=== PATIENT | male | born 1935 | race Caucasian/White ===

== ENCOUNTER 2017-06-04 16:57 | Emergency (ER) | payer MEDICARE, OTHER ==
[2017-06-04] MEDS ORDERED: LIDOCAINE 1% 2 ML VIAL ONE (17:55)
[2017-06-04] MEDS ORDERED: TETANUS/DIPHTHERIA/PERTUSSIS 0.5 ML SYRINGE IM ONE ×2 (18:40→18:56)
--- NOTE | 2017-06-04 18:41 | ED Physician Documentation ---
PD HPI HEAD INJURY - Stated complaint Stated Complaint: FALL HEAD LAC - Chief complaint Chief Complaint: Neuro - History obtained from History obtained from: Patient - History of Present Illness Mechanism of head injury: Fell Where head injury occurred: Home Timing - onset: Today Location of injury: Right Quality of pain: Pain Associated symptoms: No: LOC, AMS, Amnesia, Nausea / vomiting, Neck pain, Paresthesias, Seizures, Ear drainage, Nasal drainage Symptoms improve with: Rest, Ice Symptoms worsen with: Palpation, Movement Contributing factors: No: Anticoagulated Similar symptoms before: Diagnosis (laceration) Recently seen: Not recently seen - Additional information Additional information: 82-year-old male was working on a stairway and there was a board that was not in place and he slipped off to the side landing on his right side. He fell about 4 feet. He hit his head he did not get knocked out he denies any pain in his neck he denies any numbness or tingling denies any nausea or vomiting. Review of Systems Constitutional: denies: Fever, Chills, Myalgias Eyes: denies: Decreased vision Ears: denies: Ear pain Nose: denies: Congestion Throat: denies: Sore throat Cardiac: denies: Chest pain / pressure Respiratory: denies: Dyspnea, Cough GI: denies: Abdominal Pain, Nausea, Vomiting : denies: Dysuria Skin: denies: Rash Musculoskeletal: denies: Neck pain, Back pain, Extremity pain Neurologic: denies: Generalized weakness, Focal weakness, Numbness PD PAST MEDICAL HISTORY - Past Medical History Past Medical History: Yes Cardiovascular: Hypertension Neuro: TIA - Past Surgical History Past Surgical History: Yes - Allergies Allergies/Adverse Reactions: Allergies Allergy/AdvReac Type Severity Reaction Status Date / Time Penicillins Allergy Rash Verified 06/04/17 17:08 Sulfa (Sulfonamide Allergy Unknown Verified 06/04/17 17:08 Antibiotics) - Social History Does the pt smoke?: No Smoking Status: Never smoker Does the pt drink ETOH?: Yes ETOH Use: Wine Does the pt have substance abuse?: No - Immunizations Immunizations are current?: No Immunizations: TDAP >10years/unknown - POLST Patient has POLST: No PD ED PE NORMAL - Vitals Vital signs reviewed: Yes (Normal) - General General: Alert and oriented X 3, No acute distress, Well developed/nourished - HEENT HEENT: PERRL, EOMI, Ears normal, Moist mucous membranes, Pharynx benign, Other ( There is a 5 cm laceration to the right scalp over the parietal frontal area.) - Neck Neck: Supple, no meningeal sign, No bony TTP - Respiratory Respiratory: No respiratory distress - Derm Derm: Normal color, Warm and dry, No rash - Extremities Extremities: No deformity, No edema, Other (There are abrasions to the right and left forearms.) - Neuro Neuro: No motor deficit, No sensory deficit - Psych Psych: Normal mood, Normal affect Results - Vitals Vitals: Vital Signs - 24 hr 06/04/17 06/04/17 17:05 18:37 Temperature 36.8 C Heart Rate 72 69 Respiratory 20 14 Rate Blood Pressure 110/67 140/87 H O2 Saturation 96 97 Oxygen O2 Source Room air - Labs Labs: Laboratory Tests 06/04/17 17:26 POC Whole Bld Glucose 119 H Procedures - Laceration (location) scalp Length in cm: 5 Wound type: Linear, Clean Neurovascular status: Sensory intact, Motor intact, Vascular intact Anesthesia: Lidocaine 1% Wound Preparation: Hibiclens, Irrigated copiously NS, Wound explored, To the base Skin layer closure: Nylon, Interrupted, Size #-0 - enter number (4-0), Sutures - enter # (10) Other: Patient tolerated well, No complications, Neurovascular intact, Dressing applied, Tetanus booster given Complexity: Simple PD MEDICAL DECISION MAKING - ED course Complexity details: considered differential, d/w patient, d/w family ED course: 82-year-old male with a long scalp laceration does not have loss of consciousness he has taken aspirin but is not on any other blood thinners. He does not appear to be otherwise injured. His scalp wound is sutured. Departure - Departure Disposition: 01 Home, Self Care Clinical Impression: Scalp laceration Qualifiers: Encounter type: initial encounter Qualified Code(s): S01.01XA - Laceration without foreign body of scalp, initial encounter Condition: Stable Instructions: ED Laceration Scalp Stitch Or Stap Follow-Up: Akash Spicer MD [Primary Care Provider] - Comments: Sutures out in 7-10 days
[2017-06-04 19:08] VITALS: BP 135/76
== END 2017-06-04 19:08 | disposition home or self-care (01) ==
LOC: ED 16:57
DX: S01.01XA Laceration without foreign body of scalp, initial encounter (principal); S50.811A Abrasion of right forearm, initial encounter; S50.812A Abrasion of left forearm, initial encounter; W17.89XA Other fall from one level to another, initial encounter; Y93.89 Activity, other specified; Y92.009 Unspecified place in unspecified non-institutional (private) residence as the place of occurrence of the external cause; I10 Essential (primary) hypertension; Z23 Encounter for immunization; Z86.73 Personal history of transient ischemic attack (TIA), and cerebral infarction without residual deficits
CPT/HCPCS: 12002; 90471; 99283; 99284

== ENCOUNTER 2017-06-20 09:36 | Emergency (ER) | payer MEDICARE ==
[2017-06-20 09:52] VITALS: BP 178/92
--- NOTE | 2017-06-20 20:14 | ED Physician Documentation ---
History of Present Illness - Stated complaint Stated Complaint: SUTURE REMOVAL - Chief complaint Chief Complaint: General - Additonal information Additional information: hx from pt head injury with scalp lac 06/04 doing well to ER for suture removal no complaints Review of Systems Skin: reports: Laceration (s) PD PAST MEDICAL HISTORY - Past Medical History Past Medical History: Yes Cardiovascular: Hypertension Neuro: TIA - Past Surgical History Past Surgical History: Yes - Present Medications Home Medications: Ambulatory Orders Medication Instructions Recorded Confirmed Hydrochlorothiazide 25 mg PO DAILY 06/20/17 06/20/17 No Known Home Medications [No 06/20/17 06/20/17 Known Home Medications] Statin 06/20/17 - Allergies Allergies/Adverse Reactions: Allergies Allergy/AdvReac Type Severity Reaction Status Date / Time Penicillins Allergy Rash Verified 06/20/17 09:52 Sulfa (Sulfonamide Allergy Unknown Verified 06/20/17 09:52 Antibiotics) - Social History Does the pt smoke?: No Smoking Status: Never smoker Does the pt drink ETOH?: Yes Does the pt have substance abuse?: No - Immunizations Immunizations are current?: No Immunizations: TDAP >10years/unknown - POLST Patient has POLST: No PD ED PE NORMAL - Vitals Vital signs reviewed: Yes - HEENT HEENT: Other (well healed lac R scalp) Results - Vitals Vitals: Vital Signs - 24 hr 06/20/17 09:49 Temperature 36.5 C Heart Rate 60 Respiratory 16 Rate Blood Pressure 178/92 H O2 Saturation 96 Oxygen O2 Source Nasal cannula Procedures - Suture/staple Removal (location) scalp Suture/staple removal: Other (all sutures removed s diff, wound well healed, no dehisc or infection) Departure - Departure Disposition: 01 Home, Self Care Condition: Good Discharge Date/Time: 06/20/17 12:00
== END 2017-06-20 12:00 | disposition home or self-care (01) ==
LOC: ED 09:36
DX: S01.01XD Laceration without foreign body of scalp, subsequent encounter (principal); X58.XXXD Exposure to other specified factors, subsequent encounter; I10 Essential (primary) hypertension
CPT/HCPCS: 99281

== ENCOUNTER 2021-02-17 14:11 | Outpatient (CLI) | payer MEDICARE ==
--- NOTE | 2021-02-17 18:52 | XRAY Report ---
PROCEDURE: Lumbar Spine 2 View INDICATIONS: LOW BACK PAIN TECHNIQUE: 2 views of the lumbar spine were acquired. COMPARISON: None. FINDINGS: Bones: 5 aiz-iam-etpnedp vertebrae are present. There is normal bony alignment. No vertebral body compression fractures. No suspicious bony lesions. Moderate disc space narrowing is seen at L2-L3 and L4-L5 and L5-S1. Endplate irregularity and scleros is are seen, which are worst at L5-S1. Facet arthropathy is seen, which is most prominent inferiorly . Soft tissues: Overlying bowel gas pattern is normal. No suspicious soft tissue calcifications. Ath erosclerotic calcification is seen. IMPRESSION: Multiple levels of lumbar spine degenerative change are seen by plain film, which are wo rst inferiorly. Reviewed by: Julius Corey MD on 02/17/2021 5:51 PM [facility] Approved by: Julius Corey MD on 02/17/2021 5:51 PM [facility] Station ID: [id number]
== END 2021-02-17 14:12 | disposition home or self-care (01) ==
LOC: DI.N 14:11
PROVIDERS: ATTEND Family Medicine
DX: M47.816 Spondylosis without myelopathy or radiculopathy, lumbar region (principal); M47.817 Spondylosis without myelopathy or radiculopathy, lumbosacral region; M48.061 Spinal stenosis, lumbar region without neurogenic claudication; M48.07 Spinal stenosis, lumbosacral region

== ENCOUNTER 2023-06-28 22:59 | Outpatient (CLI) | payer MEDICARE | END 2023-06-28 23:59 | disposition left against medical advice (07) | LOC: EMS 22:59 | DX: R07.9 Chest pain, unspecified (principal) ==

== ENCOUNTER 2023-06-28 23:35 | Emergency (ER) | payer MEDICARE ==
[2023-06-29 00:03] VITALS: BP 194/92; O2SAT 98
--- NOTE | 2023-06-29 00:05 | ED Physician Documentation ---
PD HPI CHEST PAIN - Stated complaint Stated Complaint: HEART PX - Chief complaint Chief Complaint: Cardiac - History obtained from History obtained from: Patient, Family - Additional information Additional information: 88-year-old male with history of hypertension presents by private vehicle from home for central chest burning that began approximately 10 PM tonight. Patient was evaluated at home by EMS, who did an EKG and recommended that he be evaluated in the emergency department. Patient denies history of heart problems, denies history of stents or heart disease. Review of Systems Constitutional: denies: Fever, Chills Throat: denies: Dental pain / toothache, Oral lesions / sores, Sore throat Cardiac: reports: Chest pain / pressure. denies: Palpitations, Calf pain GI: denies: Abdominal Pain, Nausea, Vomiting : denies: Dysuria, Frequency, Hesitancy Musculoskeletal: denies: Neck pain, Back pain, Extremity pain Neurologic: denies: Generalized weakness, Focal weakness, Numbness PD PAST MEDICAL HISTORY - Past Medical History Cardiovascular: Hypertension - Past Surgical History Past Surgical History: Yes - Present Medications Home Medications: Ambulatory Orders Medication Instructions Recorded Confirmed No Known Home Medications 06/20/17 06/20/17 Statin 06/20/17 hydroCHLOROthiazide 25 mg PO DAILY 06/20/17 06/20/17 [Hydrochlorothiazide] - Allergies Allergies/Adverse Reactions: Allergies Allergy/AdvReac Type Severity Reaction Status Date / Time Penicillins Allergy Rash Verified 06/28/23 23:55 Sulfa (Sulfonamide Allergy Unknown Verified 06/28/23 23:55 Antibiotics) - Social History Does the pt smoke?: No Smoking Status: Never smoker Does the pt drink ETOH?: Yes Does the pt have substance abuse?: No - Immunizations Immunizations are current?: No Immunizations: TDAP >10years/unknown - POLST Patient has POLST: No PD ED PE NORMAL - Vitals Vital signs reviewed: Yes - General General: Alert and oriented X 3, No acute distress, Well developed/nourished - HEENT HEENT: Atraumatic - Neck Neck: Supple, no meningeal sign - Cardiac Cardiac: RRR, Strong equal pulses - Respiratory Respiratory: No respiratory distress, Clear bilaterally - Abdomen Abdomen: Soft, Non tender - Derm Derm: Normal color, Warm and dry, No rash - Extremities Extremities: No deformity, No tenderness to palpate, Normal ROM s pain, No edema - Neuro Neuro: Alert and oriented X 3, third mate 2-12 intact, No motor deficit, Normal speech - Psych Psych: Normal mood, Normal affect Results - Vitals Vitals: Vital Signs - 24 hr 06/28/23 23:41 Temperature 36.8 C Heart Rate 71 Respiratory 16 Rate Blood Pressure 194/92 H O2 Saturation 98 Oxygen O2 Source Room air - Labs Labs: Laboratory Tests 06/29/23 06/29/23 06/29/23 00:03 00:03 00:03 WBC 10.2 RBC 4.52 L Hgb 14.0 Hct 41.2 L MCV 91.2 MCH 31.0 MCHC 34.0 RDW 12.8 Plt Count 237 MPV 9.1 Neut # (Auto) 7.5 H Lymph # (Auto) 1.7 [place] # (Auto) 0.8 Eos # (Auto) 0.1 Baso # (Auto) 0.0 Absolute Nucleated RBC 0.00 Nucleated RBC % 0.0 PT 11.9 INR 1.1 Sodium 137 Potassium 3.2 L Chloride 101 Carbon Dioxide 30 Anion Gap 6.0 BUN 24 H Creatinine 0.9 Estimated GFR (MDRD) 80 L Glucose 141 H Calcium 9.5 Total Bilirubin 0.4 AST 23 ALT 25 Alkaline Phosphatase 71 Troponin I High Sens 21.5 H* Total Protein 6.7 Albumin 4.2 Globulin 2.5 Albumin/Globulin Ratio 1.7 Lipase 67 06/29/23 01:35 WBC RBC Hgb Hct MCV MCH MCHC RDW Plt Count MPV Neut # (Auto) Lymph # (Auto) [place] # (Auto) Eos # (Auto) Baso # (Auto) Absolute Nucleated RBC Nucleated RBC % PT INR Sodium Potassium Chloride Carbon Dioxide Anion Gap BUN Creatinine Estimated GFR (MDRD) Glucose Calcium Total Bilirubin AST ALT Alkaline Phosphatase Troponin I High Sens 26.9 H* Total Protein Albumin Globulin Albumin/Globulin Ratio Lipase PD Medical Decision Making - ED course Complexity details: reviewed results, re-evaluated patient, considered differential, d/w patient, d/w family ED course: Chest burning approximately 2 hours prior to arrival. Patient currently pain free. EKG NSR with L anterior fascicular block, no priors for comparison. Cardiac workup initiated. Patient took 324 ASA at home prior to presentation in the emergency department. Initial troponin 21.5. Based on age, GFR not initially concerning. Will order 2 hour repeat. 2 hour repeat 26.9. Patient remains pain free. He is with his neighbor, who acts as a care support for the patient's , who has dementia. She will ensure that the patient follows up with cardiology. Departure - Departure Disposition: 01 Home, Self Care Clinical Impression: Chest pain Condition: Stable Instructions: ED Heart Disease Risk Factors Forms: PCP List Discharge Date/Time: 06/29/23 02:25
[2023-06-29 00:10] LABS: BASOPHILS % (AUTO) 0.3 %; EOSINOPHILS # (AUTO) 0.1 10^3/uL (0.0-0.7); EOSINOPHILS % (AUTO) 1.1 %; HCT - HEMATOCRIT 41.2 % (42.0-52.0); LYMPHOCYTES # (AUTO) 1.7 10^3/uL (1.5-3.5); LYMPHOCYTES % (AUTO) 16.9 %; MEAN CORPUSCULAR VOLUME 91.2 fL (80.0-94.0); MEAN PLATELET VOLUME 9.1 fL (7.4-11.4); MONOCYTES # (AUTO) 0.8 10^3/uL (0.0-1.0); MONOCYTES % (AUTO) 7.5 %; NEUTROPHILS # (AUTO) 7.5 10^3/uL (1.5-6.6); NEUTROPHILS % (AUTO) 73.7 %; PLT - PLATELET COUNT 237 10^3/uL (130-450); RED BLOOD COUNT 4.52 10^6/uL (4.70-6.10); RED CELL DISTRIBUTION WIDTH 12.8 % (12.0-15.0); WHITE BLOOD COUNT 10.2 x10^3/uL (4.8-10.8)
[2023-06-29] MEDS: ASPIRIN CHEW 81 MG TABLET PO STA ×2 (00:10→00:26)
[2023-06-29 00:21] LABS: INR 1.1 (0.8-1.2); PT - PROTHROMBIN TIME 11.9 secs (9.9-12.6)
[2023-06-29 00:57] LABS: TROPONIN I HIGH SENSITIVITY 21.5 ng/L (2.3-19.7)
--- NOTE | 2023-06-29 00:57 | XRAY Report ---
PROCEDURE: Chest 1 View X-Ray INDICATIONS: Chest pain TECHNIQUE: One view of the chest was acquired. COMPARISON: None. FINDINGS: Surgical changes and devices: None. Lungs and pleura: No pleural effusions or pneumothorax. Lungs are separate small degree of intersti tial prominence, likely age related. Mediastinum: Mediastinal contours appear normal. Heart size is normal. Bones and chest wall: No suspicious bony lesions. Overlying soft tissues appear unremarkable. IMPRESSION: No acute cardiopulmonary process. A definite source of chest pain is not found. Reviewed by: David Rodriguez MD on 06/29/2023 12:56 AM PDT Approved by: David Rodriguez MD on 06/29/2023 12:56 AM PDT Station ID: [id number]
[2023-06-29 00:59] LABS: ALBUMIN 4.2 g/dL (3.2-5.5); ALBUMIN/GLOBULIN RATIO 1.7 (1.0-2.2); BILIRUBIN,TOTAL 0.4 mg/dL (0.2-1.0); CALCIUM 9.5 mg/dL (8.5-10.3); CREATININE 0.9 mg/dL (0.6-1.3); POTASSIUM 3.2 mmol/L (3.5-4.5); TOTAL PROTEIN 6.7 g/dL (6.4-8.9)
== END 2023-06-29 02:25 | disposition home or self-care (01) ==
LOC: ED 23:35
DX: R07.9 Chest pain, unspecified (principal); I10 Essential (primary) hypertension
CPT/HCPCS: 36415; 80053; 83690; 84484; 85025; 85610; 93005; 99283; 99284

== ENCOUNTER 2023-10-06 08:00 | Outpatient (CLI) | payer MEDICARE | END 2023-10-06 08:01 | disposition home or self-care (01) | LOC: LAB.N 08:00 | PROVIDERS: ATTEND Physician Assistant Medical | DX: J06.9 Acute upper respiratory infection, unspecified (principal) ==

== ENCOUNTER 2024-06-24 17:13 | Observation (INO) ==
[2024-06-24 17:36] LABS: BASOPHILS % (AUTO) 0.3 %; EOSINOPHILS # (AUTO) 0.2 10^3/uL (0.0-0.7); HCT - HEMATOCRIT 37.4 % (42.0-52.0); HGB - HEMOGLOBIN 12.7 g/dL (14.0-18.0); LYMPHOCYTES # (AUTO) 1.5 10^3/uL (1.5-3.5); LYMPHOCYTES % (AUTO) 19.4 %; MEAN CORPUSCULAR HEMOGLOBIN 31.3 pg (27.0-31.0); MEAN CORPUSCULAR VOLUME 92.1 fL (80.0-94.0); MEAN PLATELET VOLUME 9.6 fL (7.4-11.4); MONOCYTES # (AUTO) 0.6 10^3/uL (0.0-1.0); NEUTROPHILS # (AUTO) 5.3 10^3/uL (1.5-6.6); NEUTROPHILS % (AUTO) 68.9 %; PLT - PLATELET COUNT 205 10^3/uL (130-450); RED BLOOD COUNT 4.06 10^6/uL (4.70-6.10); RED CELL DISTRIBUTION WIDTH 12.8 % (12.0-15.0); WHITE BLOOD COUNT 7.7 x10^3/uL (4.8-10.8)
[2024-06-24 17:47] LABS: MAGNESIUM 1.1 mg/dL (1.7-2.3)
[2024-06-24 17:53] LABS: ALBUMIN 3.8 g/dL (3.2-5.5); ALBUMIN/GLOBULIN RATIO 1.5 (1.0-2.2); BILIRUBIN,TOTAL 0.8 mg/dL (0.2-1.0); CALCIUM 8.8 mg/dL (8.5-10.3); CREATININE 0.9 mg/dL (0.6-1.3); POTASSIUM 2.7 mmol/L (3.5-4.5); TOTAL PROTEIN 6.4 g/dL (6.4-8.9)
[2024-06-24] MEDS ORDERED: iohexoL-300 100 ML VIAL ONE (18:21)
[2024-06-24] MEDS: MAGNESIUM OXIDE 400 MG TABLET PO STA (18:21)
[2024-06-24] MEDS: ONDANSETRON ODT 4 MG TABLET TL STA (18:21)
[2024-06-24] MEDS: POTASSIUM CHLORIDE 20 MEQ TABLET PO STA (18:21)
--- NOTE | 2024-06-24 18:21 | ED Physician Documentation ---
History of Present Illness Stated complaint Stated Complaint: DIZZY/FALL Chief complaint Chief Complaint: Neuro Additonal information Additional information: 89-year-old male with history of hypertension presents emergency department for weakness and dizziness. Patient says that he was walking out to get the mail when he turned around to walk inside he said that something suddenly hit him to cause him to collapse to the point where he was unable to get up. He says he did not injure himself in the fall but medics were driving by and saw him fall and pulled over to check on him because patient was unable to get out of bed and he is still having these persistent symptoms that brought him to the emergency department. Patient also notes that he recently discontinued his metoprolol a few months ago because he was reading about it and saw a lot of bad side effects. He says since he is discontinued the metoprolol he has not had any issues and is overall been feeling well. He says right now he just feels very weak and dizzy he does not describe the dizziness as a room spinning sensation which is a very off spacey head sensation. He does have also history of TIA but says it was a long long time ago that he last had a TIA. Meds/Allgy Home Medications Ambulatory Orders Medication Instructions Recorded Confirmed hydrochlorothiazide 25 mg tablet 25 mg PO DAILY 06/20/17 06/24/24 atorvastatin 40 mg tablet 40 mg PO DAILY 06/24/24 06/24/24 metoprolol succinate 25 mg 25 mg PO DAILY 06/24/24 06/24/24 tablet,extended release 24 hr omeprazole 20 mg capsule,delayed 20 mg PO DAILY PRN gastric reflux 06/24/24 06/25/24 release potassium chloride 10 mEq 10 meq PO DAILY 06/24/24 06/24/24 tablet,extended release(part/cryst) sildenafil 25 mg tablet (Viagra) 25 mg PO DAILY PRN sexual activity 06/24/24 06/24/24 aspirin 81 mg tablet,delayed 81 mg PO DAILY #30 tabs 06/25/24 release Allergies Allergies Allergy/AdvReac Type Severity Reaction Status Date / Time Penicillins Allergy Rash Verified 06/28/23 23:55 Sulfa (Sulfonamide Allergy Unknown Verified 06/28/23 23:55 Antibiotics) [facility] Social History Social History (Updated 06/24/24 @ 17:22 by Fab Collazo, RN, BSN) Smoking Status: Never smoker If you are a former smoker, when did you quit? (Date/Year): 1959 Number of Years Smoked: 5 Second hand tobacco smoke exposure: No Do you dip or chew tobacco?: No Do you vape?: No Living arrangement: At home Marital Status: Living Condition: With spouse/s.o. Relationship: Physical Activity: Walking Level: Independent Do you feel safe in your home environment?: Yes Suffered physical, verbal, emotional, or financial abuse?: No History of Abuse: No ETOH Use: Wine and Liquor Frequency: Daily Number of Amount/day: 1 Substance Use: denies use POLST Patient has POLST: No Exam Exam Vital Signs Temperature 36.6 C 06/25/24 16:53 Pulse Rate 60 06/25/24 16:53 Respiratory Rate 18 06/25/24 16:53 Blood Pressure 142/83 H 06/25/24 16:53 O2 Saturation 97 06/25/24 16:53 Constitutional normal general appearance, no apparent distress, average body habitus, no limitations and alert HENMT normocephalic and head/scalp atraumatic Eyes PERRL, EOMs intact bilaterally, normal visual escobar by confrontation and alignment normal Neck/C-Spine left neck swelling appears chronic Chest inspection of chest normal Respiratory breath sounds equal bilaterally, normal respiratory effort and clear to auscultation bilaterally Cardiovascular normal heart rate noted and regular rhythm noted Extremities normal to inspection and normal to palpation Neurology mender hand II-XII intact, no movement abnormality noted, no focal motor deficit noted, no sensory deficits noted, gait normal, speech normal, coordination normal, no pronator drift noted and GCS normal Psychiatry mental status grossly normal, oriented x3, thought process normal, cooperative, affect normal, psychomotor activity normal and memory normal Skin skin color normal Results Vitals Vitals: Vital Signs - 24 hr 06/24/24 17:14 06/24/24 17:32 06/24/24 19:20 Temperature 36.3 C L Temperature Source Temporal Artery Scan Pulse Rate 62 81 Respiratory Rate 14 18 Blood Pressure 195/107 H 192/101 H 194/92 H O2 Saturation 95 95 O2 Source Room air Room air Pain Intensity 0 0 0 06/24/24 20:51 06/24/24 22:00 06/24/24 22:56 Temperature Temperature Source Pulse Rate 80 70 70 Respiratory Rate 18 16 18 Blood Pressure 200/91 H 184/101 H 181/96 H O2 Saturation 98 98 98 O2 Source Room air Room air Room air Pain Intensity 0 0 0 Oxygen O2 Source Room air EKG (time done) 1741: EKG releavant findings:: EKG personally interpreted by author of this note. Relevant findings are: Rate: Rate (enter#) (58) Rhythm: NSR [place]: Other (Left anterior fascicular block. Probable left ventricular hypertrophy with borderline prolonged QT interval) QRS: Normal Computer interpretation: Agree with computer Labs Labs: Laboratory Tests 06/24/24 06/24/24 16:40 17:31 WBC 7.7 RBC 4.06 L Hgb 12.7 L Hct 37.4 L MCV 92.1 MCH 31.3 H MCHC 34.0 RDW 12.8 Plt Count 205 MPV 9.6 Neut # (Auto) 5.3 Lymph # (Auto) 1.5 [place] # (Auto) 0.6 Eos # (Auto) 0.2 Baso # (Auto) 0.0 Absolute Nucleated RBC 0.00 Nucleated RBC % 0.0 Sodium 142 Potassium 2.7 L Chloride 103 Carbon Dioxide 32 Anion Gap 7.0 BUN 20 Creatinine 0.9 Estimated GFR (MDRD) 80 L Glucose 99 Calcium 8.8 Magnesium 1.1 L Total Bilirubin 0.8 AST 21 ALT 18 Alkaline Phosphatase 43 Troponin I High Sens 13.3 Total Protein 6.4 Albumin 3.8 Globulin 2.6 Albumin/Globulin Ratio 1.5 Lipase 33 Urine Color YELLOW Urine Clarity CLEAR Urine pH 7.0 Ur Specific [place] 1.020 Urine Protein TRACE Urine Glucose (UA) NEGATIVE Urine Ketones NEGATIVE Urine Occult Blood NEGATIVE Urine Nitrite NEGATIVE Urine Bilirubin NEGATIVE Urine Urobilinogen 0.2 (NORMAL) Ur Leukocyte Esterase NEGATIVE Ur Microscopic Review NOT INDICATED Urine Culture Comments NOT INDICATED Rads (name of study) CT angio head and neck: Relevant Findings:: Final report received CT head without: Relevant Findings:: Final report received PD Medical Decision Making ED course ED course: 89-year-old male presents emergency department for episode of dizziness that has now fully resolved. Labs are complete for further evaluation which did not reveal any acute abnormalities or findings. EKG does not show any signs of an acute coronary syndrome. Head CT was complete for further evaluation. Head CT without did not reveal any acute intracranial pathology. 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 The right vertebral artery is widely patent. 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 He was supposed to have surgery on this but said that he did not want to undergo all the complications or possible side effects that came with the surgery. Because of the CT angio report I spoke with on-call vascular surgeon from [facility] who said that given that it is involving V3 V4 we need to speak with a neurologist for further evaluation and workup as to what to do but from vascular surgeon standpoint no interventions from there and are warranted. Due to change of shift report given to oncoming overnight physician who is further managing the patient's care. Discharge Plan Discharge Patient Disposition: ED Place in Observation Condition: Good Clinical Impression: Brain TIA, Hypokalemia, Hypomagnesemia Interventions: ED Admission Assessment Last Done: 06/25/24 00:03
[2024-06-24] MEDS: iohexoL-300 100 ML VIAL IVP ONE (18:42)
[2024-06-24] MEDS: SODIUM CHLORIDE 0.9% 1,000 ML IV STA (18:44)
[2024-06-24 18:55] LABS: BILIRUBIN,URINE NEGATIVE (NEGATIVE); GLUCOSE, URINE (UA) NEGATIVE (NEGATIVE); KETONES,URINE (UA) NEGATIVE (NEGATIVE); LEUKOCYTE ESTERASE, URINE NEGATIVE (NEGATIVE); NITRITE,URINE NEGATIVE (NEGATIVE); OCCULT BLOOD,URINE NEGATIVE (NEGATIVE); PROTEIN,URINE TRACE mg/dL (NEGATIVE); UROBILINOGEN,URINE 0.2 (NORMAL) E.U./dL (NORMAL)
[2024-06-24 18:56] LABS: CLARITY,URINE CLEAR (CLEAR)
--- NOTE | 2024-06-24 20:51 | CT Report ---
PROCEDURE: CT Head WO INDICATIONS: dizziness TECHNIQUE: Noncontrast 4.5 mm thick angled axial sections acquired from the foramen magnum to the vertex. For r adiation dose reduction, the following was used: automated exposure control, adjustment of mA and/or kV according to patient size. COMPARISON: None. FINDINGS: Image quality: Excellent. CSF spaces: Basal cisterns are patent. No extra-axial fluid collections. Ventricles are normal in size and shape. Brain: No midline shift. No intracranial masses or hemorrhage. [place]-white matter interface is norm al. Intracranial carotid calcifications. Age-related volume loss and small vessel ischemic change. Skull and face: Calvarium and visualized facial bones are intact, without suspicious lesions. Sinuses: Visualized sinuses and mastoids are clear. IMPRESSION: No acute intracranial pathology. Findings are concordant with preliminary interpretation provided by [facility]. Reviewed by: Jh Mandel MD on 06/24/2024 8:50 PM PDT Approved by: Jh Mandel MD on 06/24/2024 8:50 PM PDT Station ID: [id number]
--- NOTE | 2024-06-24 20:56 | CT Report ---
PROCEDURE: CT Angio Head/Neck INDICATIONS: dizziness TECHNIQUE: After the administration of intravenous contrast, 1 mm thick sections acquired from the aortic arch t hrough the [employer] [facility] [place]. 3-dimensional tshrymc-beepvgzdl-arwkvhholr (MIP) and/or volume renderin g reformats were acquired of the central intracranial vasculature and neck separately. For radiation dose reduction, the following was used: automated exposure control, adjustment of mA and/or kV acco rding to patient size. CONTRAST: 80ml [id number] COMPARISON: CT head from the same date performed immediately prior to this examination.. FINDINGS: Image quality: Diagnostic. HEAD CT: CSF Spaces: Basal cisterns are patent. No extra-axial fluid collections. Ventricles are normal in size and shape. Brain: No significant abnormality is seen for scanning technique. Skull and face: Calvarium and visualized facial bones appear intact, without suspicious lesions. Sinuses: Visualized sinuses and mastoids are clear. HEAD CT ANGIOGRAPHY: Anterior circulation: Intracranial internal carotid arteries are normal in size and flow. The flow within the paired anterior cerebral arteries is normal and symmetric. The flow within the middle cer ebral arteries is normal and symmetric. The anterior communicating artery is seen. No aneurysms are seen. Posterior circulation: The distal left vertebral artery may be occluded, potentially chronic in natur e. The more proximal left vertebral artery is diffusely diminutive. The right vertebral artery is dom inant and gives rise to a normal caliber basilar artery. Flow within the posterior cerebral arteries is normal and symmetric. No aneurysms are seen. NECK CT ANGIOGRAPHY: Carotid system: The great vessels demonstrate a conventional anatomy as they arise from the aortic a rch. The origins of the common carotid arteries appear patent. The common carotid arteries demonstr ate normal caliber and courses. The bifurcation regions are both widely patent. The internal caroti d arteries demonstrate normal calibers and courses. Posterior circulation: There is diffuse diminutive appearance of the left vertebral artery at its ent irety, likely a long-standing process. The V3 and V4 segments may be occluded. The right vertebral ar hao is widely patent and dominant. It gives rise to a normal caliber basilar artery. Soft tissues: Visualized neck soft tissues demonstrate no suspicious abnormalities. Very large, kno wn left neck lipoma. Bones: No suspicious bony lesions. Visualized cervical spine appears normally aligned. IMPRESSION: 1. The left vertebral artery is diffusely diminutive in its entirety, threadlike, with possible occlu shashank of the V3 and V4 segments, potentially a long-standing occlusion. The right vertebral artery is widely patent and dominant and gives rise to a normal caliber basilar artery. 2. Anterior circulation is patent. No focal filling defect or vascular cut off or aneurysm. 3. Patent carotids. 4. Known very large left neck lipoma. Findings are concordant with preliminary interpretation provided by [facility]. The estimate of stenosis included in the report of the imaging study was calculated using the NASCET method Reviewed by: Jh Mandel MD on 06/24/2024 8:55 PM PDT Approved by: Jh Mandel MD on 06/24/2024 8:55 PM PDT Station ID: [id number]
[2024-06-24] MEDS: lisinopriL 5 MG TABLET PO STA (21:11)
--- NOTE | 2024-06-24 22:57 | ED Physician Documentation ---
ED Addendum Addendum Addendum: I received signout on this patient from Michelle Martínez, see her note for full H&P. I spoke with the patient neurology regarding this patient. They recommend observation for serial neurological exams, MRI in the morning and stroke workup. Also recommend starting aspirin daily. Recommend restarting his metoprolol. Atorvastatin 80 mg p.o. daily. The patient remains asymptomatic in the emergency department but is significantly hypertensive. He states that he stopped taking his metoprolol a few months ago, he states he did not really have a reason other than he did not want to. He is taking his hydrochlorothiazide but is not on any potassium. He states that he ran out of this. He also thinks that he is out of his atorvastatin but is unsure. Patient is fully asymptomatic in the emergency department. Patient also states that he has chronic diarrhea, 2-3 times daily. He has seen a GI doctor and has been told that this is due to lactose intolerance. He states that he has been drinking milk. Has not had any diarrhea while he has been in the emergency department. We will discuss with the nighttime hospitalist and place the patient observation. This document was made in part using voice recognition software. While efforts are made to proofread this document, sound alike and grammatical errors may occur. Discharge Plan Discharge Patient Disposition: ED Place in Observation Condition: Good Clinical Impression: Brain TIA, Hypokalemia, Hypomagnesemia Prescriptions: No Action hydrochlorothiazide 25 MG tablet 25 mg PO DAILY atorvastatin 40 mg tablet 40 mg PO DAILY metoprolol succinate 25 mg tablet extended release 24 hr 25 mg PO DAILY potassium chloride 10 mEq tablet,ER particles/crystals 10 meq PO DAILY sildenafil [Viagra] 25 mg tablet 25 mg PO DAILY PRN (Reason: sexual activity) Rx Instructions: administer 30 minutes to 4 hours before activity omeprazole 20 mg capsule,delayed release(DR/EC) Print Language: Kiswahili Stand Alone Forms: PCP List
[2024-06-24] MEDS: ASPIRIN EC 325 MG TABLET PO STA (23:07)
--- NOTE | 2024-06-24 23:16 | HISTORY & PHYSICAL EXAMINATION ---
Chief Complaint Chief Complaint Chief Complaint: Dizziness History of Present Illness Admitted From Admitted From:: ER History Obtained From Records Reviewed: Yes History obtained from: Pt, chart, staff Exam Limitations: Virtual exam History of Present Illness HPI Comment/Other: H&P was conducted via video remotely, using [employer] Cart. Patient is in [place] Physician is in [place]. No one is at bedside. 89 yo M with PMH of TIA, HTN, HLD presented to the ER with c/o 1 day h/o Dizziness, Weakness. Pt felt in his usual state of health this morning. Later, he walked to his mailbox, collected his mail and was walking back towards his house when he had a sudden onset of dizziness and weakness. He slowly fell to the ground. He did not injure himself. He felt unable to get up. A dray driver, who is an EMT, was passing buy and saw in the rearview mirror the pt fall to the ground; he drove back to check on pt and called 911. Pt has had no other symptoms. No CP/SOB/N/V/cough/F/C/Abdo pain. He does report chronic loose stools, 2-3x/day, which has been evaluated. He was told that he had lactose intolerance; pt has continued to take in dairy products. His last loose stool was this AM and has not changed from his baseline. Pt had a TIA 20 years ago; his presentation was slurred speech and numbness of L face, which resolved. Pt stopped his Metoprolol about 2 months ago. He is also off his Atorvastatin and KCl. He has continued to take his HCTZ. Pt currently has no symptoms; his dizziness and weakness have resolved in the ER. In the ER, BP 200/91, K 2.7, Mg 1.1 EKG: NSR at 58 bpm, no STTw changes CT Head: NAD CTA H/N: 1. The left vertebral artery is diffusely diminutive in its entirety, threadlike, with possible occlusion of the V3 and V4 segments, potentially a long-standing occlusion. The right vertebral artery is widely patent and dominant and gives rise to a normal caliber basilar artery. 2. Anterior circulation is patent. No focal filling defect or vascular cut off or aneurysm. 3. Patent carotids. 4. Known very large left neck lipoma. Pt was given Mg Oxide 400 mg PO, KCl 40 mEQ PO, IVF, ASA, Lisinopril in the ER. ER Provider D/W with Vascular, who did not recommend any intervention. ER Provider D/W Neuro who recommended pt be admitted for Observation, MRI Head, and continue baby Aspirin. Review of Systems Status of ROS: 10 or more systems reviewed and unremarkable except as noted in history and below PFSH Social History Social History (Updated 06/24/24 @ 17:22 by Fab Collazo, RN, BSN) Smoking Status: Former smoker If you are a former smoker, when did you quit? (Date/Year): 1959 Number of Years Smoked: 5 Living arrangement: At home Marital Status: Living Condition: With spouse/s.o. Relationship: Physical Activity: Walking Do you feel safe in your home environment?: Yes Suffered physical, verbal, emotional, or financial abuse?: No History of Abuse: No ETOH Use: Wine and Liquor Frequency: Daily Number of Amount/day: 1 Substance Use: denies use POLST Patient has POLST: No Meds/Allgy Home Medications Ambulatory Orders Medication Instructions Recorded Confirmed hydrochlorothiazide 25 mg tablet 25 mg PO DAILY 06/20/17 06/24/24 atorvastatin 40 mg tablet 40 mg PO DAILY 06/24/24 06/24/24 metoprolol succinate 25 mg 25 mg PO DAILY 06/24/24 06/24/24 tablet,extended release 24 hr omeprazole 20 mg capsule,delayed mg 06/24/24 release potassium chloride 10 mEq 10 meq PO DAILY 06/24/24 06/24/24 tablet,extended release(part/cryst) sildenafil 25 mg tablet (Viagra) 25 mg PO DAILY PRN sexual activity 06/24/24 06/24/24 Allergies Allergies Allergy/AdvReac Type Severity Reaction Status Date / Time Penicillins Allergy Rash Verified 06/28/23 23:55 Sulfa (Sulfonamide Allergy Unknown Verified 06/28/23 23:55 Antibiotics) Exam Exam Vital Signs Temperature 36.3 C L 06/24/24 17:14 Pulse Rate 70 06/24/24 22:56 Respiratory Rate 18 06/24/24 22:56 Blood Pressure 181/96 H 06/24/24 22:56 O2 Saturation 98 06/24/24 22:56 Constitutional normal general appearance and no apparent distress HENMT normocephalic and head/scalp atraumatic Eyes no scleral icterus Respiratory cart stethoscope not working; per ER Provider: CTA B/L Cardiovascular cart stethoscope not working; per ER Provider: RRR, no murmurs Gastrointestinal per ER Provider: non-distended, NT, Soft Extremities per ER Provider: moves all extrem, no edema Neurology Pt ambulating in room at start of video; A+Ox3, normal speech, cooperative; per ER Provider: NFD Conclusion/Plan Problem List (1) Brain TIA: (2) Hypokalemia: (3) Hypomagnesemia: Plan Dizziness Weakness Fall -most likely d/t low K and low Mg -eval for TIA -PT/OT eval Hypokalemia Low Mag -K 2.7, Mg 1.1 -Pt was given Mg Oxide 400 mg PO, KCl 40 mEQ PO, IVF in the ER. -supplement now and PRN TIA evaluation H/o TIA -CT Head: NAD -CTA H/N: 1. The left vertebral artery is diffusely diminutive in its entirety, threadlike, with possible occlusion of the V3 and V4 segments, potentially a long-standing occlusion. The right vertebral artery is widely patent and dominant and gives rise to a normal caliber basilar artery. 2. Anterior circulation is patent. No focal filling defect or vascular cut off or aneurysm. 3. Patent carotids. 4. Known very large left neck lipoma. -Pt was given ASA in the ER. -ER Provider D/W with Vascular, who did not recommend any intervention. -ER Provider D/W Neuro who recommended pt be admitted for Observation, MRI Head, and continue baby Aspirin. -admit to Obs/Med tele -continue daily 81 mg ASA -permissive HTN x 48 hrs -neuro checks -bedside swallow -NPO until bedside swallow done/passed -MRI ordered, Echo ordered -PT/OT/Speech consulted -check Lipids, TSH, Hgba1c HTN HLD -BP 200/91 -EKG: NSR at 58 bpm, no STTw changes -Pt was given Lisinopril in the ER. -restart home medications: -hold home medications: Loose stools -per pt chronic, d/t lactose intolerance, and has not changed -stool culture and CDiff ordered VTE Prophylaxis: Lovenox Code Status: D/W pt; he is Full Code ~Becka Perez MD Hospitalist Lab Results Lab results reviewed: Yes 06/24/24:31 06/24/24 17:31 EKG Results EKG Interpreted Independently: Yes
[2024-06-24] MEDS ORDERED: ACETAMINOPHEN 325 MG TABLET PO PRN (23:31)
[2024-06-24] MEDS ORDERED: ONDANSETRON 4 MG/2 ML VIAL IVP PRN (23:34)
[2024-06-24] MEDS ORDERED: SODIUM CHLORIDE FLUSH 0.9% 10 ML SYRINGE IVP PRN (23:34)
[2024-06-24] MEDS ORDERED: ONDANSETRON ODT 4 MG TABLET TL PRN (23:34)
[2024-06-25] MEDS: POTASSIUM CHLORIDE 20 MEQ TABLET PO STA (01:18)
[2024-06-25] MEDS: MAGNESIUM SULFATE 2 GRAM 2 GM/50 ML BAG IV ONE ×2 (01:19→12:44)
[2024-06-25] MEDS: SODIUM CHLORIDE FLUSH 0.9% 10 ML SYRINGE IVP SCH (01:20)
[2024-06-25 05:56] LABS: BASOPHILS % (AUTO) 0.5 %; EOSINOPHILS # (AUTO) 0.2 10^3/uL (0.0-0.7); EOSINOPHILS % (AUTO) 2.5 %; HCT - HEMATOCRIT 36.5 % (42.0-52.0); HGB - HEMOGLOBIN 12.2 g/dL (14.0-18.0); LYMPHOCYTES # (AUTO) 1.4 10^3/uL (1.5-3.5); LYMPHOCYTES % (AUTO) 17.8 %; MEAN CORPUSCULAR HEMOGLOBIN 30.9 pg (27.0-31.0); MEAN CORPUSCULAR HGB CONC 33.4 g/dL (32.0-36.0); MEAN CORPUSCULAR VOLUME 92.4 fL (80.0-94.0); MEAN PLATELET VOLUME 10.2 fL (7.4-11.4); MONOCYTES # (AUTO) 0.6 10^3/uL (0.0-1.0); MONOCYTES % (AUTO) 7.4 %; NEUTROPHILS # (AUTO) 5.7 10^3/uL (1.5-6.6); NEUTROPHILS % (AUTO) 71.4 %; PLT - PLATELET COUNT 188 10^3/uL (130-450); RED BLOOD COUNT 3.95 10^6/uL (4.70-6.10); RED CELL DISTRIBUTION WIDTH 12.8 % (12.0-15.0)
[2024-06-25 06:14] LABS: CHOL/HDL RATIO 2.3 (<5.0); CHOLESTEROL 85 mg/dL; HDL CHOLESTEROL 37 mg/dL; LDL CHOLESTEROL,CALCULATED 23 mg/dL; LDL/HDL RATIO 0.6 (<3.6); MAGNESIUM 1.6 mg/dL (1.7-2.3); TRIGLYCERIDES 127 mg/dL; VLDL CHOLESTEROL 25 mg/dL
[2024-06-25 06:24] LABS: THYROID STIMULATING HORMONE 2.31 uIU/mL (0.34-5.60)
[2024-06-25 06:29] LABS: CALCIUM 8.5 mg/dL (8.5-10.3); CREATININE 0.8 mg/dL (0.6-1.3); POTASSIUM 3.1 mmol/L (3.5-4.5)
[2024-06-25] MEDS ORDERED: [UNRECOGNIZED DRUG - OTHER] PO SCH (09:00)
[2024-06-25] MEDS: METOPROLOL SUCCINATE 25 MG TABLET PO SCH (09:06)
[2024-06-25] MEDS: POTASSIUM CHLORIDE 10 MEQ CAPSULE PO SCH (09:06)
[2024-06-25] MEDS: ATORVASTATIN 40 MG TABLET PO SCH (09:06)
[2024-06-25] MEDS: ASPIRIN EC 81 MG TABLET PO SCH (09:07)
[2024-06-25] MEDS: ENOXAPARIN 40 MG/0.4 ML SYRINGE SUBQ SCH (09:07)
[2024-06-25 10:20] LABS: ESTIMATED AVERAGE GLUCOSE 100 mg/dL (70-100); HEMOGLOBIN A1c% 5.1 % (4.27-6.07)
[2024-06-25] MEDS ORDERED: MAGNESIUM SULFATE 1 GM in SODIUM CHLORIDE 0.9% 50 ML IV ONE (10:38)
[2024-06-25] MEDS ORDERED: POTASSIUM CHLORIDE INJ 40 MEQ in SODIUM CHLORIDE 0.9% 500 ML IV ONE (10:38)
--- NOTE | 2024-06-25 10:47 | Discharge Summary ---
"Discharge Summary Admit Date: 06/24/24 Discharge Date: 06/25/24 Discharging Provider: lorena Code Status: Attempt Resuscitation Discharge Facility Name: home DIAGNOSES Admission Diagnoses: tia Discharge Diagnoses with Status of Each Condition: tia HPI History of Present Illness: H&P was conducted via video remotely, using [employer]. Patient is in [place]. Physician is in [place]. No one is at bedside. 89 yo M with PMH of TIA, HTN, HLD presented to the ER with c/o 1 day h/o Dizziness, Weakness. Pt felt in his usual state of health this morning. Later, he walked to his mailbox, collected his mail and was walking back towards his house when he had a sudden onset of dizziness and weakness. He slowly fell to the ground. He did not injure himself. He felt unable to get up. A street flusher driver, who is an EMT, was passing buy and saw in the rearview mirror the pt fall to the ground; he drove back to check on pt and called 911. Pt has had no other symptoms. No CP/SOB/N/V/cough/F/C/Abdo pain. He does report chronic loose stools, 2-3x/day, which has been evaluated. He was told that he had lactose intolerance; pt has continued to take in dairy products. His last loose stool was this AM and has not changed from his baseline. Pt had a TIA 20 years ago; his presentation was slurred speech and numbness of L face, which resolved. Pt stopped his Metoprolol about 2 months ago. He is also off his Atorvastatin and KCl. He has continued to take his HCTZ. Pt currently has no symptoms; his dizziness and weakness have resolved in the ER. In the ER, BP 200/91, K 2.7, Mg 1.1 EKG: NSR at 58 bpm, no STTw changes CT Head: NAD CTA H/N: 1. The left vertebral artery is diffusely diminutive in its entirety, threadlike, with possible occlusion of the V3 and V4 segments, potentially a long-standing occlusion. The right vertebral artery is widely patent and dominant and gives rise to a normal caliber basilar artery. 2. Anterior circulation is patent. No focal filling defect or vascular cut off or aneurysm. 3. Patent carotids. 4. Known very large left neck lipoma. Pt was given Mg Oxide 400 mg PO, KCl 40 mEQ PO, IVF, ASA, Lisinopril in the ER. ER Provider D/W with Vascular, who did not recommend any intervention. ER Provider D/W Neuro who recommended pt be admitted for Observation, MRI Head, and continue baby Aspirin. CONSULTS | PROCEDURES Consultations: vascular, neuro HOSPITAL COURSE Hospital Course: Patient was admitted on 06/24/2024 for TIA associated with dizziness and ground- level fall. Patient did not sustain any injury during the fall. CT indicated diminutive left vertebral artery flow. Vascular was consulted by ED which recommended no intervention. Neuro was consulted who recommended MRI head and echo. Acute is pending, MRI indicated moderate atrophy of right bladder disease due to chronic ischemic changes, No evidence of acute infarct hemorrhage or mass lesion. However there are Old blood products in the left thalamus and basal ganglia like due to microhemorrhages secondary to chronic hypertension. Patient is discharged with a follow-up with neurology. ALLERGIES Allergies Allergy/AdvReac Type Severity Reaction Status Date / Time Penicillins Allergy Rash Verified 06/28/23 23:55 Sulfa (Sulfonamide Allergy Unknown Verified 06/28/23 23:55 Antibiotics) MEDICATIONS Ambulatory Orders Medication Instructions Recorded Confirmed hydrochlorothiazide 25 mg tablet 25 mg PO DAILY 06/20/17 06/24/24 atorvastatin 40 mg tablet 40 mg PO DAILY 06/24/24 06/24/24 metoprolol succinate 25 mg 25 mg PO DAILY 06/24/24 06/24/24 tablet,extended release 24 hr omeprazole 20 mg capsule,delayed 20 mg PO DAILY PRN gastric reflux 06/24/24 06/25/24 release potassium chloride 10 mEq 10 meq PO DAILY 06/24/24 06/24/24 tablet,extended release(part/cryst) sildenafil 25 mg tablet (Viagra) 25 mg PO DAILY PRN sexual activity 06/24/24 06/24/24 aspirin 81 mg tablet,delayed 81 mg PO DAILY #30 tabs 06/25/24 release PHYSICAL EXAM AT DISCHARGE General Appearance: positive No acute distress and Alert Eyes Bilateral: positive Normal inspection and PERRL Neck: positive Trachea midline and Other (Patient has a large left-sided lipoma) Respiratory: positive Chest non-tender and No respiratory distress Cardiovascular: positive Regular rate & rhythm, No murmur and No gallop Abdomen: positive Non-tender, No organomegaly and No distention Skin: positive Color nml, No rash and Warm Extremities: positive Non-tender and Full ROM LABS 06/25/24 05:13 06/25/24 05:13 DIAGNOSTIC IMAGING Diagnostic Imaging Results: Final report reviewed TIME SPENT Time Spent in Discharge (Minutes): 35 Discharge Plan Discharge Patient Disposition: 01 Home, Self Care Condition: Good Medically Cleared Date:: 06/25/24 Prescriptions: New aspirin 81 mg Tablet,Delayed Release (Dr/Ec) 81 mg PO DAILY Qty: 30 12RF Rx Instructions: take one aspirin per day Continued hydrochlorothiazide 25 MG tablet 25 mg PO DAILY atorvastatin 40 mg tablet 40 mg PO DAILY Patient Comments: Patient states he stopped taking, discussing if he should continue with doctor. metoprolol succinate 25 mg tablet extended release 24 hr 25 mg PO DAILY Patient Comments: Patient states he stopped taking, discussing if he should continue with doctor. potassium chloride 10 mEq tablet,ER particles/crystals 10 meq PO DAILY Patient Comments: Patient states he stopped taking, discussing if he should continue with doctor. Viagra 25 mg tablet 25 mg PO DAILY PRN (Reason: sexual activity) Rx Instructions: administer 30 minutes to 4 hours before activity omeprazole 20 mg capsule,delayed release(DR/EC) 20 mg PO DAILY PRN (Reason: gastric reflux) Diet: Low Sodium Health Concerns: please do not stop any medication unless advised by your doctor MRI indicates Moderate atrophy and chronic ischemic changes Old blood products in the left thalamus and basal ganglia probable result of prior microhemorrhage consistent with chronic hypertension. Your hypertension needs to be better controlled, please follow-up with your primary care physician Print Language: Kittitian Patient Instructions: TIA, Lipoma Stand Alone Forms: PCP List Follow-up Care: Gagan Duque MD [Primary Care Provider] -"
[2024-06-25] MEDS: POTASSIUM CHLORIDE 20 MEQ TABLET PO SCH (11:16)
[2024-06-25 12:48] VITALS: O2SAT 97
--- NOTE | 2024-06-25 12:53 | MRI Report ---
PROCEDURE: MRI Brain WO INDICATIONS: TIA TECHNIQUE: Multiplanar multisequential MR images of the brain were obtained without contrast COMPARISON: None FINDINGS: CSF Spaces: Basal cisterns are patent. No extra-axial fluid collections. Ventricles are normal in size and shape. Brain: No intracranial masses or hemorrhage. Howell/white matter interface is normal. Brainstem appe ars normal. Diffusion-weighted images shows no evidence of acute infarct. Normal intravascular flow voids are present. Moderate atrophy and white matter chronic ischemic change. Punctate foci of old blood products noted in the left lentiform nucleus and left thalamus Skull and face: Calvarium has normal marrow signal. Orbits appear normal. Incidental unilateral lef t intraocular lens replacement. Partially imaged large lipoma noted in the upper neck on the left as well Sinuses: Sinuses and mastoids are clear. IMPRESSION: Moderate atrophy and white matter chronic ischemic change. No evidence of acute infarct, hemorrhage o r mass lesion. Punctate old blood products in the left thalamus and basal ganglia probable sequela of prior microhem orrhage consistent with chronic hypertension. Large lipoma partially imaged in the left upper neck Reviewed by: Heriberto Guerra MD on 06/25/2024 11:52 AM [facility] Approved by: Heriberto Guerra MD on 06/25/2024 11:52 AM [facility] Station ID: [id number]
--- NOTE | 2024-06-25 15:20 | PHARMACY PROGRESS NOTE ---
Best Possible Medication History Admit Date and Time: 06/24/24 [id number] [facility] Statement: As the person ultimately responsible for medication therapy, providers are able to order a medication from an existing home medication list in [facility] via the "Reconcile Routine" prior to Confirmation of that medication by technical sales support specialist. Such practice is discouraged except when the physician, in their clinical judgment, deems that a medical need exists for a medication without regard to previous use.
[2024-06-25] MEDS: MAGNESIUM SULFATE 1 GM/2 ML VIAL IVP STA (15:26)
== END 2024-06-25 17:00 | disposition home or self-care (01) ==
LOC: ED 17:13 → MS2 17:13
PROVIDERS: ADMIT Internal Medicine; ATTEND Internal Medicine
DX: E87.6 Hypokalemia; E73.9 Lactose intolerance, unspecified; E78.5 Hyperlipidemia, unspecified; D17.0 Benign lipomatous neoplasm of skin and subcutaneous tissue of head, face and neck; E83.42 Hypomagnesemia; G45.9 Transient cerebral ischemic attack, unspecified; Z91.81 History of falling; Z87.891 Personal history of nicotine dependence; Z86.73 Personal history of transient ischemic attack (TIA), and cerebral infarction without residual deficits; K52.9 Noninfective gastroenteritis and colitis, unspecified; I65.02 Occlusion and stenosis of left vertebral artery